=== PATIENT | female | born 1970 | race Caucasian/White ===

== ENCOUNTER 2016-10-18 00:05 | Emergency (ER) | payer OTHER ==
[2016-10-18] MEDS ORDERED: IBUPROFEN 600 MG TABLET ONE (01:08)
[2016-10-18] MEDS ORDERED: ONDANSETRON 4 MG ODT TAB ONE (03:07)
[2016-10-18] MEDS ORDERED: HYDROCODONE/ACETAMINOPHEN 5/325MG TABLET ONE (03:08)
--- NOTE | 2016-10-18 07:36 | RAD ---
Exams: Three-view right foot and three-view right ankle COMPARISON: None INDICATION: Right ankle pain and swelling after fall 3 hours ago. TECHNIQUE: AP, lateral and oblique views of the right ankle and AP, lateral and oblique views of the right foot were obtained. FINDINGS: Soft tissue swelling is seen along the lateral aspect of the ankle and dorsal aspect of the proximal foot. Small joint effusion is also noted in the ankle. There is a mildly displaced calcaneus fracture which extends from the subtalar joint as annotated on the oblique view of the ankle and into the calcaneocuboid joint. Fracture fragments are displaced by up up to 3 mm. Tiny bone fragments project along the lateral aspect of the talus on the AP view of the ankle which may small avulsion fragments off of the talus. No additional fracture is identified within the foot or ankle. Ankle mortise is intact. IMPRESSION: Mildly displaced calcaneal fracture with possible additional avulsion fractures off of the lateral aspect of the talus.
== END 2016-10-18 03:50 | disposition home or self-care (01) ==
LOC: ED 00:05
DX: S92.001A Unspecified fracture of right calcaneus, initial encounter for closed fracture (principal); W10.9XXA Fall (on) (from) unspecified stairs and steps, initial encounter; Y93.89 Activity, other specified; Y92.79 Other farm location as the place of occurrence of the external cause
CPT/HCPCS: 73610; 73630; 99283 ×2; 29515; A9270 ×3